=== PATIENT | female | born 1955 | race Caucasian/White ===

== ENCOUNTER 2017-06-26 12:44 | Day surgery (SDC) | payer BC ==
[2017-06-26] MEDS ORDERED: PROPOFOL 10 MG/ML VIAL IV ONE (14:00)
[2017-06-26] MEDS ORDERED: LIDOCAINE 2% MDV (20MG/ML) 20ML VIAL IV ONE (14:00)
[2017-06-26] MEDS ORDERED: FENTANYL PF 100MCG/2ML VIAL IV ONE (14:00)
--- NOTE | 2017-06-27 13:00 | Operative Note ---
DATE OF SURGERY: 06/26/2017 OPERATION: ESOPHAGOGASTRODUODENOSCOPY with biopsy. PREOPERATIVE DIAGNOSIS: GERD and short-segment Marshall's. POSTOPERATIVE DIAGNOSIS: GERD and short-segment Marshall's. PROCEDURE: After informed consent was obtained from the patient, she was placed in the left lateral decubitus position in the endoscopy suite, sedated and monitored by the department of anesthesia. A well-lubricated [id number] gastroscope was placed in the posterior oropharynx and under direct visualization passed to the proximal esophagus. The endoscope was advanced through the proximal, mid, and distal esophagus. The GE junction was irregular and erythematous. No ulcers, erosions, strictures, or varices were otherwise seen. The remainder of the esophagus appeared normal. The gastric body, antrum, pylorus, duodenal bulb, and sweep were unremarkable. J-turn views of the proximal stomach were unrevealing. The endoscope was then straightened and retracted to the GE junction where biopsies were obtained. The endoscope was removed from the patient with no new findings noted. RECOMMENDATIONS: The patient should take her PPI daily. She apparently is not taking this. She also should stop smoking. As always, thank you for allowing me to participate in the healthcare of your patients. CC: KAILEE NOEL MD, FACP MTDD
== END 2017-06-26 14:19 | disposition home or self-care (01) ==
LOC: HOP 12:44
PROVIDERS: ATTEND Internal Medicine Gastroenterology
DX: K22.70 Barrett's esophagus without dysplasia (principal); K21.9 Gastro-esophageal reflux disease without esophagitis
CPT/HCPCS: 43235; 00740; J3010

== ENCOUNTER → 2018-07-09 | Day surgery (SDC) | payer BC ==
[~2018-07-09] MED LIST: ACETAMINOPHEN 1,000 MG/100 ML BTL IV ONE; BUPIVACAINE 0.25% W/EPI MPF 30ML VIAL IVP ONE; DEXAMETHASONE 4 MG/ML 1ML VIAL IVP ONE; FENTANYL PF 100MCG/2ML VIAL IV ONE; LIDOCAINE 2% MDV (20MG/ML) 20ML VIAL IV ONE; MIDAZOLAM HCL 2MG/2ML VIAL IV ONE; ONDANSETRON HCL IV 4 MG/2 ML VIAL IVP ONE; PROPOFOL 10 MG/ML VIAL IV ONE; SEVOFLURANE 250 ML INH ONE
--- NOTE | 2018-07-10 08:30 | Operative Note ---
DATE OF SURGERY: 07/09/2018 Surgeon: Mickey Ray DO PREOPERATIVE DIAGNOSES: 1. Torn medial meniscus of the right knee. 2. Chondromalacia of the right knee. POSTOPERATIVE DIAGNOSES: 1. Torn medial meniscus, right knee. 2. Synovitis, right knee. 3. Chondromalacia of medial femoral condyle, trochlea, patella, and lateral tibial plateau, right knee. OPERATION: 1. Arthroscopic partial medial meniscectomy, right knee. 2. Arthroscopic partial synovectomy of the right knee. 3. Arthroscopic chondroplasty of medial femoral condyle, trochlea, patella, and lateral tibial plateau, right knee. DESCRIPTION OF PROCEDURE: This 63-year-old female was taken to the operating room and placed in the supine position on the operating room table. General anesthesia was induced. The right lower extremity was elevated. It was exsanguinated and the tourniquet inflated to 300 mmHg. Arthroscopic knee harkins applied. Right knee prepped with Hibiclens and draped in the usual sterile fashion. An inferolateral portal was established for the 4 mm arthroscope. Initial evaluation of the joint demonstrated synovitis in the suprapatellar pouch with grade 3 chondromalacia of the patellofemoral articulation. Through an inferomedial portal, chondroplasty was performed to stabilize the articular cartilage of the patella and trochlea. Partial synovectomy was also performed. This appeared to be more acute than chronic. We then directed our attention to the medial compartment, and grade 3 chondromalacia of the medial femoral condyle was present but no areas of denuded bone were identified. The chondroplasty was performed to stabilize the articular cartilage there. A radial tear of the posterior horn of the medial meniscus was present with fragmentation and some maceration. Utilizing the basket forceps, we resected back to the apex of the tear, tapered in each direction to a smooth contoured surface. We re-probed it and confirmed it to be stable. We then directed our attention to the intracondylar notch, which was found to be normal. The lateral compartment was entered. Grade 2 chondromalacia of the center of the lateral tibial plateau was present with an area of about 0.5 cm being affected. The lateral meniscus appeared to be normal. The joint was then copiously irrigated and suctioned. We lightly debrided the lateral tibial plateau to remove loose flaps but it was otherwise not disturbed. It was irrigated and suctioned. The instruments were removed. The portals infiltrated with 0.25% Marcaine with epinephrine after the instruments had been removed. The sterile dressings were applied. Tourniquet and knee harkins released and the patient taken to the recovery room in satisfactory condition. GROSS PATHOLOGY: This patient demonstrated grade 3 chondromalacia of the patellofemoral joint, medial femoral condyle, and grade 2 of the lateral tibial plateau as described. A tear of the medial meniscus was also present as described. CC: KAILEE NOEL MD, FACP [facility]
== END | disposition home or self-care (01) ==
LOC: SUR 08:34
PROVIDERS: ATTEND Orthopaedic Surgery
DX: S83.241A Other tear of medial meniscus, current injury, right knee, initial encounter (principal); M65.9 Synovitis and tenosynovitis, unspecified; M22.41 Chondromalacia patellae, right knee; M94.261 Chondromalacia, right knee; I10 Essential (primary) hypertension; F17.210 Nicotine dependence, cigarettes, uncomplicated; E66.9 Obesity, unspecified
CPT/HCPCS: 29881; 29875; 01400; J2405; J3010

== ENCOUNTER 2018-11-12 06:52 | Day surgery (SDC) | payer BC ==
[2018-11-12] MEDS ORDERED: PROPOFOL 10 MG/ML VIAL IV ONE (06:53)
[2018-11-12] MEDS ORDERED: LIDOCAINE 2% MDV (20MG/ML) 20ML VIAL IV ONE (06:53)
--- NOTE | 2018-11-13 09:50 | Operative Note ---
DATE OF SURGERY: 11/12/2018 OPERATION: 1. ESOPHAGOGASTRODUODENOSCOPY with biopsy. 2. COLONOSCOPY with biopsy. PREOPERATIVE DIAGNOSES: 1. Dyspepsia. 2. Colon cancer screening. POSTOPERATIVE DIAGNOSES: 1. Nonerosive antral gastritis. 2. GE junction ulceration and small hiatal hernia. 3. Severe sigmoid diverticulosis. 4. Rectosigmoid colon polyps. 5. Fair prep. PROCEDURE: After informed consent was obtained from the patient, she was placed in the left lateral decubitus position in the endoscopy suite, sedated and monitored by the department of anesthesia. A well-lubricated [id number] gastroscope was placed in the posterior oropharynx under direct visualization and passed to the proximal esophagus. The endoscope was advanced through the proximal, mid, and distal esophagus. The GE junction demonstrated erythema as well as an ulceration. There was a small hiatal hernia. The gastric body and antrum demonstrated mild patchy erythema. The duodenal bulb and sweep were unremarkable. J-turn views of the proximal stomach revealed no significant abnormalities. The endoscope was straightened. Random gastric biopsies were obtained. The endoscope removed from the patient with no new findings noted. Digital rectal exam was unremarkable. A well-lubricated [id number] colonoscope was inserted into the rectum and advanced to the cecum. Preparation quality was fair. The cecum, cecal bulb, ileocecal valve, appendiceal orifice, ascending colon, transverse colon, and descending colon were free of inflammatory changes, mass lesions, or polyps. There were several sigmoid colon diverticular changes. The preparation quality was fair. There were 4 diminutive rectosigmoid colon polyps which appeared hyperplastic but nonetheless removed with a cold forceps. The rectum was unremarkable in forward and in J-turn views. The endoscope was straightened, the rectal ampulla deflated, and the endoscope was removed. RECOMMENDATIONS: I would suggest the patient be on a PPI such as pantoprazole 40 mg daily. She should be on a high-fiber diet. I would recommend a repeat colonoscopy on 3 years based on fair prep. She also should undergo repeat upper endoscopy in 8 weeks to assess esophageal ulcer healing. As always, thank you for allowing me to participate in the healthcare of your patients. CC: KAILEE NOEL MD, FACP [facility]
== END 2018-11-12 09:00 | disposition home or self-care (01) ==
LOC: HOP 06:52
PROVIDERS: ATTEND Internal Medicine Gastroenterology
DX: Z12.11 Encounter for screening for malignant neoplasm of colon (principal); K63.5 Polyp of colon; K57.30 Diverticulosis of large intestine without perforation or abscess without bleeding; R10.13 Epigastric pain; K29.70 Gastritis, unspecified, without bleeding; K44.9 Diaphragmatic hernia without obstruction or gangrene; K25.9 Gastric ulcer, unspecified as acute or chronic, without hemorrhage or perforation

== ENCOUNTER 2019-02-04 06:25 | Day surgery (SDC) | payer BC ==
[2019-02-04] MEDS ORDERED: PROPOFOL 10 MG/ML VIAL IV ONE (06:26)
[2019-02-04] MEDS ORDERED: LIDOCAINE 2% MDV (20MG/ML) 20ML VIAL IV ONE (06:26)
[2019-02-04] MEDS ORDERED: FENTANYL PF 100MCG/2ML VIAL IV ONE (06:26)
--- NOTE | 2019-02-05 07:20 | Operative Note ---
OPERATION: ESOPHAGOGASTRODUODENOSCOPY with biopsy. PREOPERATIVE DIAGNOSIS: Marshall's. POSTOPERATIVE DIAGNOSIS: Marshall's. SPECIMENS: GE junction. ESTIMATED BLOOD LOSS: Minimum. COMPLICATIONS: None apparent. PROCEDURE: After informed consent was obtained from the patient, she was placed in the left lateral decubitus position in the endoscopy suite, sedated and monitored by the department of anesthesia. Once sedated, a well-lubricated [id number] gastroscope was placed in the posterior oropharynx under direct visualization and passed to the proximal esophagus. The endoscope was advanced through the proximal, mid, and distal esophagus. The GE junction was slightly irregular. No ulcers, erosions, strictures, varices, or mass lesions were seen. The remainder of the esophagus was normal. The gastric body, antrum, pylorus, duodenal bulb, and sweep were unremarkable. J-turn views of the proximal stomach were unrevealing. The endoscope was straightened and GE junction biopsies were obtained. The endoscope was removed from the patient with no new findings noted. RECOMMENDATIONS: The patient appears to be having breakthrough symptoms primarily regurgitation that happens sporadically but also happens at night with nocturnal pulmonary symptoms. She states that she is already avoiding eating within several hours of bedtime and recumbency which is appropriate. She also needs to stop smoking and I believe she would benefit if she did lose some weight as well. In the interim, I will increase her pantoprazole to twice daily before breakfast and before dinner and will refer to Dr. Mg for an opinion as to whether he believes a fundoplication would be helpful. As always, thank you for allowing me to participate in the healthcare of your patients. CC: KAILEE NOEL MD, FACP [facility]
== END 2019-02-04 08:30 | disposition home or self-care (01) ==
LOC: HOP 06:25
PROVIDERS: ATTEND Internal Medicine Gastroenterology
DX: K22.70 Barrett's esophagus without dysplasia (principal); K29.70 Gastritis, unspecified, without bleeding; K31.9 Disease of stomach and duodenum, unspecified; K21.9 Gastro-esophageal reflux disease without esophagitis; I10 Essential (primary) hypertension
CPT/HCPCS: 43239; 00731; J3010